=== PATIENT | female | born 1980 | race Hispanic/Latino ===

== ENCOUNTER 2020-09-02 12:07 | Inpatient (IN) | payer OTHER, SELFPAY ==
[2020-09-02 14:52] LABS: Absolute Lymphocytes (CBC) 1.4 K/uL (0.7-4.9); Basophils % 0.2 % (0-1.3); Hematocrit 36.1 % (36.0-45.0); Lymphocytes % 11.3 % (15.3-44.8); MPV 8.3 fL (7.6-11.3); RBC Red Blood Cell Count 4.83 M/uL (3.86-4.86)
[2020-09-02 15:06] LABS: Albumin 3.5 g/dL (3.4-5.0); Bilirubin Direct 0.1 mg/dL (0-0.2); Bilirubin Total 0.4 mg/dL (0.2-1.0); Potassium 3.9 mmol/L (3.5-5.1); Protein, Total 8.7 g/dL (6.4-8.2)
[2020-09-02] MEDS ORDERED: MORPHINE 4 MG/ML SYR ONE (15:06)
[2020-09-02] MEDS ORDERED: ONDANSETRON 4 MG/2 ML VIAL ONE (15:06)
[2020-09-02] MEDS ORDERED: NA CHLORIDE 0.9% 1,000 ML ONE ×2 (15:06→18:45)
--- NOTE | 2020-09-02 15:30 | RAD REPORT ---
EXAM DESCRIPTION: US - Abdomen Exam Limited - 09/02/2020 3:22 pm CLINICAL HISTORY: ABD PAIN COMPARISON: CT ABD PELVIS W CONTRAST dated 03/29/2013 FINDINGS: The gallbladder demonstrates no gallstones. No pericholecystic fluid or gallbladder wall t hickening. The common bile duct is normal measuring 4 mm. The liver demonstrates no findings of intrahepatic biliary dilatation. IMPRESSION: Negative for cholelithiasis or acute cholecystitis.
[2020-09-02 16:02] LABS: Urine Blood Trace-lysed (Negative); Urine Glucose Negative (Negative); Urine Protein 1+ (Negative); Urine Specific Gravity >=1.030 (1.005-1.030); Urine pH 5.5 (5.0-7.0)
--- NOTE | 2020-09-02 16:33 | RAD REPORT ---
EXAM DESCRIPTION: CTAbdomen Pelvis W Contrast - 09/02/2020 4:08 pm CLINICAL HISTORY: Abdominal pain. ABD PAIN COMPARISON: CT ABD PELVIS W CONTRAST dated 03/29/2013 TECHNIQUE: Biphasic CT imaging of the abdomen and pelvis was performed with 100 ml non-ionic IV cont rast. All CT scans are performed using dose optimization technique as appropriate and may include automated exposure control or mA/KV adjustment according to patient size. FINDINGS: The lung bases are clear. Too small to characterize low-density lesions in the liver which are statistically benign. No adrenal lesions. The spleen is unremarkable. Pancreas unremarkable. No renal or ureteral calculi. Small to m oderate volume of free fluid is present. Small bowel obstruction is present. The transition point is in the right hemiabdomen. The transition point is smooth. There is some fecalized small bowel content s. The small bowel measures up to 3 centimeters. Prior appendectomy. No suspicious bony findings. IMPRESSION: Findings consistent with small-bowel obstruction with smooth transition point in the rig ht hemiabdomen, presumably related to adhesions. Ascites is present.
--- NOTE | 2020-09-02 16:45 | ER ---
Nurse's Notes [facility] Name: Priti Ambrose Age: 40 yrs Sex: Female : 1980 Arrival Date: 09/02/2020 Time: 12:09 Bed 17 [facility] MD: Diagnosis: Small Bowel Obstruction Presentation: 09/02 12:17 Chief complaint: Patient states: Upper abd pain that wraps around body for 2 days. N/V ll1 started today. Family member states she saw "liquid dark red" BM last week. Coronavirus screen: Client denies travel out of the [place] in the last 14 days. At this time, the client does not indicate any symptoms associated with coronavirus-19. Ebola Screen: Patient denies travel to an Ebola-affected area in the 21 days before illness onset. Initial Sepsis Screen: Does the patient meet any 2 criteria? No. Patient's initial sepsis screen is negative. Does the patient have a suspected source of infection? Yes: Acute abdominal pain. Risk Assessment: Do you want to hurt yourself or someone else? Patient reports no desire to harm self or others. Onset of symptoms was September 01, 2020. 12:17 Method Of Arrival: Ambulatory ll1 12:17 Acuity: JOSELO 3 ll1 Historical: - Allergies: 12:19 No Known Allergies; ll1 - PMHx: 12:19 None; ll1 - PSHx: 12:19 Appendectomy; ll1 12:20 section; ll1 - Immunization history:: Client reports having NOT received the Covid vaccine. Flu vaccine is not up to date. - Social history:: Smoking status: Patient denies any tobacco usage or history of. Screenin:39 Abuse screen: Denies threats or abuse. Nutritional screening: No deficits noted. jd3 Tuberculosis screening: No symptoms or risk factors identified. Fall Risk Ambulatory Aid- None/Bed Rest/Nurse Assist (0 pts). Gait- Normal/Bed Rest/Wheelchair (0 pts) Mental Status- Oriented to own ability (0 pts). Total Scott Fall Scale indicates No Risk (0-24 pts). Assessment: 14:45 General: Appears in no apparent distress. uncomfortable, Behavior is calm, cooperative, jd3 appropriate for age. Pain: Complains of pain in right upper quadrant and left upper quadrant Quality of pain is described as sharp, shooting, tender. Neuro: Level of Consciousness is awake, alert, obeys commands, Oriented to person, place, time, situation. Cardiovascular: Denies chest pain, Capillary refill < 3 seconds Patient's skin is warm and dry. Respiratory: Airway is patent Respiratory effort is even, unlabored, Respiratory pattern is regular, symmetrical, Denies cough, shortness of breath. GI: Abdomen is round non-distended, Abd is soft X 4 quads Abdomen is tender to palpation in right upper quadrant Reports diarrhea, nausea, vomiting. : No signs and/or symptoms were reported regarding the genitourinary system. EENT: No signs and/or symptoms were reported regarding the EENT system. Derm: Skin is intact, Skin is dry, Skin is normal, Skin temperature is warm. Musculoskeletal: Circulation, motion, and sensation intact. Range of motion: intact in all extremities. 15:23 Reassessment: Patient appears in no apparent distress at this time. No changes from jd3 previously documented assessment. Patient and/or family updated on plan of care and expected duration. Pain level reassessed. Patient is alert, oriented x 3, equal unlabored respirations, skin warm/dry/pink. 16:15 Reassessment: Patient appears in no apparent distress at this time. Patient and/or jd3 family updated on plan of care and expected duration. Pain level reassessed. Patient is alert, oriented x 3, equal unlabored respirations, skin warm/dry/pink. pt reports feeling better after morphine. awaiting results. 17:00 Reassessment: Patient appears in no apparent distress at this time. Patient and/or jd3 family updated on plan of care and expected duration. Pain level reassessed. Patient is alert, oriented x 3, equal unlabored respirations, skin warm/dry/pink. provider at bedside discussing plan of care. 18:15 Reassessment: Patient appears in no apparent distress at this time. Patient and/or jd3 family updated on plan of care and expected duration. Pain level reassessed. Patient is alert, oriented x 3, equal unlabored respirations, skin warm/dry/pink. Patient states feeling better. 20:46 Reassessment: Patient and/or family updated on plan of care and expected duration. Pain ea level reassessed. Patient is alert, oriented x 3, equal unlabored respirations, skin warm/dry/pink. 21:17 Reassessment: Patient and/or family updated on plan of care and expected duration. Pain ea level reassessed. Patient is alert, oriented x 3, equal unlabored respirations, skin warm/dry/pink. Report given to receiving nurse, pt admitted to ED hold 9 per wheelchair per staff. Vital Signs: 12:17 BP 154 / 87; Pulse 77; Resp 16; Temp 97.6; Pulse Ox 99% ; Height 5 ft. 4 in. (162.56 ll1 cm); Pain 10/10; 16:16 Pulse 75; Resp 17 S; Pulse Ox 97% on R/A; jd3 18:59 BP 133 / 74; Pulse 61; Resp 16 S; Pulse Ox 100% on R/A; jd3 20:46 BP 115 / 83; Pulse 60; Resp 18; Pulse Ox 98% ; ea ED Course: 12:09 Patient arrived in ED. ds1 12:19 Triage completed. ll1 12:20 Arm band placed on. ll1 14:28 Nidia Boogie FNP-C [facility]. kb 14:28 Deyvi Chiadez MD is Attending Physician. kb 14:29 Kingsley Bates RN is Primary Nurse. jd3 14:45 Inserted saline lock: 20 gauge in left antecubital area, using aseptic technique. Blood jd3 collected. 15:22 US Abdomen Limited In Process Unspecified. EDMS 15:40 Patient has correct armband on for positive identification. Bed in low position. Call jd3 light in reach. Side rails up X 1. Adult w/ patient. Pulse ox on. NIBP on. 16:08 CT Abd/Pelvis - IV Contrast Only In Process Unspecified. EDMS 16:44 Atif Burns is Hospitalizing Provider. kb 20:45 No provider procedures requiring assistance completed. Patient admitted, IV remains in ea place. Administered Medications: 14:52 Drug: morphine 4 mg Route: IVP; Site: left antecubital; jd3 15:50 Follow up: Response: No adverse reaction jd3 14:52 Drug: Zofran (Ondansetron) 4 mg Route: IVP; Site: left antecubital; jd3 15:50 Follow up: Response: No adverse reaction jd3 14:52 Drug: NS 0.9% 1000 ml Route: IV; Rate: 1000 ml; Site: left antecubital; jd3 15:50 Follow up: Response: No adverse reaction; IV Status: Completed infusion jd3 18:38 Drug: Flagyl (metroNIDAZOLE) 500 mg Volume: 100 ml; Route: IVPB; Rate: 200 ml/hr; jd3 Infused Over: 30 mins; Site: left antecubital; 19:11 Follow up: Response: No adverse reaction; IV Status: Completed infusion jd3 18:38 Drug: NS 0.9% 1000 ml Route: IV; Rate: 125 ml/hr; Site: left antecubital; jd3 21:18 Follow up: IV Status: Completed infusion ea 19:11 Drug: Cipro (ciprofloxacin) 400 mg Volume: 200 ml; Route: IVPB; Infused Over: 60 mins; jd3 Site: left antecubital; 21:18 Follow up: IV Status: Completed infusion ea Outcome: 16:44 Decision to Hospitalize by Provider. kb 20:45 Condition: stable ea 20:45 Instructed on the need for admit, Demonstrated understanding of instructions. 20:45 Admitted to accompanied by nurse, Report called to Receiving nurse ea 21:18 Patient left the ED. ea Signatures: Dispatcher [employer] EDMS Nidia Boogie, SIZE WORKER-C SIZE WORKER-Nellie Gonzalez ds1 Vlaarie Caldera RN Kingsley Salguero ea, RN RN jd3 Lewis, Lynsay, RN RN ll1
--- NOTE | 2020-09-02 16:46 | EDPHYS ---
Physician Documentation [facility] Name: Priti Ambrose Age: 40 yrs Sex: Female : 1980 Arrival Date: 09/02/2020 Time: 12:09 Bed 17 Private MD: ED Physician Deyvi Chaidez HPI: 09/02 18:54 This 40 yrs old Female presents to ER via Ambulatory with complaints of kb Abdominal Pain, Nausea/Vomiting. 18:54 The patient presents with abdominal pain in the upper abdomen. Onset: The kb symptoms/episode began/occurred 2 day(s) ago. The symptoms do not radiate. Associated signs and symptoms: Pertinent positives: nausea, vomiting, and diarrhea, Pertinent negatives: fever. The symptoms are described as constant. Modifying factors: The symptoms are alleviated by nothing, the symptoms are aggravated by pressure. Severity of pain: At its worst the pain was moderate in the emergency department the pain is unchanged. The patient has not experienced similar symptoms in the past. The patient has not recently seen a physician. Historical: - Allergies: 12:19 No Known Allergies; ll1 - PMHx: 12:19 None; ll1 - PSHx: 12:19 Appendectomy; ll1 12:20 section; ll1 - Immunization history:: Client reports having NOT received the Covid vaccine. Flu vaccine is not up to date. - Social history:: Smoking status: Patient denies any tobacco usage or history of. ROS: 18:53 Constitutional: Negative for fever, chills, and weight loss. kb 18:53 Abdomen/GI: Positive for abdominal pain, nausea, vomiting, and diarrhea, Negative for constipation. 18:53 All other systems are negative. Exam: 18:53 Constitutional: This is a well developed, well nourished patient who is awake, alert, kb and in no acute distress. Head/Face: Normocephalic, atraumatic. ENT: Moist Mucous membranes Cardiovascular: Regular rate and rhythm with a normal S1 and S2. No gallops, murmurs, or rubs. No pulse deficits. Respiratory: Respirations even and unlabored. No increased work of breathing, no retractions or nasal flaring. Skin: Warm, dry with normal turgor. Normal color. MS/ Extremity: Pulses equal, no cyanosis. Neurovascular intact. Full, normal range of motion. Neuro: Awake and alert, GCS 15, oriented to person, place, time, and situation. Moves all extremities. Normal gait. Psych: Awake, alert, with orientation to person, place and time. Behavior, mood, and affect are within normal limits. 18:53 Abdomen/GI: Inspection: abdomen appears normal, Bowel sounds: normal, Palpation: soft, in all quadrants, moderate abdominal tenderness, in the epigastric area and right upper quadrant. Vital Signs: 12:17 BP 154 / 87; Pulse 77; Resp 16; Temp 97.6; Pulse Ox 99% ; Height 5 ft. 4 in. (162.56 ll1 cm); Pain 10/10; 16:16 Pulse 75; Resp 17 S; Pulse Ox 97% on R/A; jd3 18:59 BP 133 / 74; Pulse 61; Resp 16 S; Pulse Ox 100% on R/A; jd3 20:46 BP 115 / 83; Pulse 60; Resp 18; Pulse Ox 98% ; ea MDM: 14:28 Patient medically screened. kb 16:41 Data reviewed: vital signs, nurses notes. Data interpreted: Pulse oximetry: on room air kb is 97 %. Interpretation: normal. Counseling: I had a detailed discussion with the patient and/or guardian regarding: the historical points, exam findings, and any diagnostic results supporting the discharge/admit diagnosis, lab results, radiology results, the need for further work-up and treatment in the hospital. Physician consultation: Vinicio Guillen MD was contacted at 16:43, regarding consult, patient's condition, and will see patient in inpatient room. Admission orders: after a detailed discussion of the patient's condition and case, the admit orders are written by me. 09/02 14:28 Order name: Basic Metabolic Panel; Complete Time: 15:08 kb 09/02 14:28 Order name: CBC with Diff; Complete Time: 15:10 kb 09/02 14:28 Order name: Hepatic Function; Complete Time: 15:08 kb 09/02 14:28 Order name: Lipase; Complete Time: 15:08 kb 09/02 16:02 Order name: Urine Dipstick-Ancillary; Complete Time: 16:07 EDMS 09/02 16:04 Order name: Urine --Ancillary (enter results) eb 09/02 14:33 Order name: US Abdomen Limited; Complete Time: 15:39 kb 09/02 15:42 Order name: CT Abd/Pelvis - IV Contrast Only; Complete Time: 16:35 kb 09/02 16:05 Order name: Urine --Ancillary; Complete Time: 18:27 EDMS 09/02 17:51 Order name: COVID-19 : Document "Date of Symptom Onset" if Symptomatic. eb 09/02 20:10 Order name: SARS-COV-2 RT PCR; Complete Time: 20:31 EDMS 09/02 14:28 Order name: IV Saline Lock; Complete Time: 14:43 kb 09/02 14:28 Order name: Labs collected and sent; Complete Time: 14:42 kb 09/02 15:42 Order name: Urine Dipstick-Ancillary (obtain specimen); Complete Time: 16:17 kb 09/02 15:42 Order name: Urine Test (obtain specimen); Complete Time: 16:17 kb Administered Medications: 14:52 Drug: morphine 4 mg Route: IVP; Site: left antecubital; jd3 15:50 Follow up: Response: No adverse reaction jd3 14:52 Drug: Zofran (Ondansetron) 4 mg Route: IVP; Site: left antecubital; jd3 15:50 Follow up: Response: No adverse reaction jd3 14:52 Drug: NS 0.9% 1000 ml Route: IV; Rate: 1000 ml; Site: left antecubital; jd3 15:50 Follow up: Response: No adverse reaction; IV Status: Completed infusion jd3 18:38 Drug: Flagyl (metroNIDAZOLE) 500 mg Volume: 100 ml; Route: IVPB; Rate: 200 ml/hr; jd3 Infused Over: 30 mins; Site: left antecubital; 19:11 Follow up: Response: No adverse reaction; IV Status: Completed infusion jd3 18:38 Drug: NS 0.9% 1000 ml Route: IV; Rate: 125 ml/hr; Site: left antecubital; jd3 21:18 Follow up: IV Status: Completed infusion ea 19:11 Drug: Cipro (ciprofloxacin) 400 mg Volume: 200 ml; Route: IVPB; Infused Over: 60 mins; jd3 Site: left antecubital; 21:18 Follow up: IV Status: Completed infusion ea Disposition: 09/03 07:02 Co-signature as Attending Physician, Deyvi Chaidez MD I agree with the assessment and rn plan of care. Attestation: The patient's history, exam findings, diagnostics, and a summary of any interventions or procedures was reviewed in detail with Nidia TRONCOSO. Disposition Summary: 09/02/20 16:44 Hospitalization Ordered Hospitalization Status: Inpatient Admission kb Provider: Atif Burns Condition: Stable kb Problem: new kb Symptoms: are unchanged kb Bed/Room Type: Standard kb Location: Intensive Care Unit(09/02/20 20:16) bb Room Assignment: ER - 9(09/02/20 20:16) bb Diagnosis - Small Bowel Obstruction kb Forms: - Medication Reconciliation Form kb - SBAR form kb Signatures: Dispatcher [employer] EDNidia Cole FNP-C FNP-Ckb Ballard, Brenda RN RN Deyvi Eldridge MD MD rn Davies, Jonathon, RN RN Gilbert Oliveira RN RN ll1 Valarie Caldera RN, ea Corrections: (The following items were deleted from the chart) 09/02 20:16 16:44 [facility]urg (Inpatient) [facility] 20:16 16:44 kb
--- NOTE | 2020-09-02 17:50 | P.HP ---
Certification for Inpatient Patient admitted to: Observation With expected LOS: >2 Midnights Practitioner: I am a practitioner with admitting privileges, knowledge of patient current condition, hospital course, and medical plan of care. Services: Services provided to patient in accordance with Admission requirements found in Title 42 Section 412.3 of the Code of Federal Regulations Patient History Date of Service: 09/02/20 Reason for admission: Abdominal pain History of Present Illness: 40-year-old woman with a history appendectomy and section x3 presented emergency department with colicky abdominal pain of onset this morning. Associated nausea and vomiting. Patient reports a small bowel movement. Symptoms persisted and therefore presented to the emergency department. CT abdomen and pelvis demonstrates small-bowel obstruction with transition point. General surgery Dr. Guillen informed who recommended hospitalization. Allergies No Known Allergies Allergy (Unverified 03/30/13 02:25) Home Medications: Ciprofloxacin HCl [Cipro*] 500 mg PO Q12H #10 tab 03/31/13 Hydrocodone 7.5/APAP 325 [[place] 7.5/325 mg*] 1 tab PO Q4HP PRN #20 tab 03/31/13 metroNIDAZOLE [Flagyl*] 500 mg PO Q8H #15 tablet 03/31/13 - Past Medical/Surgical History -: 3 c-sections -: Appendectomy - Family History Father -: Diabetes - Social History Smoking Status: Never smoker Alcohol use: No CD- Drugs: No Caffeine use: Yes Review of Systems Other: Except as documented, all other systems reviewed and negative. Physical Examination - Physical Exam General: Alert, In no apparent distress, Oriented x3 HEENT: Atraumatic, Normocephalic, Mucous membr. moist/pink, EOMI, Sclerae nonicteric Neck: Supple, JVD not distended Respiratory: Clear to auscultation bilaterally, Normal air movement Cardiovascular: No edema, Regular rate/rhythm, Normal S1 S2 Gastrointestinal: Normal bowel sounds, Soft and benign, Non-distended, Tenderness (Diffuse moderate tenderness on deep palpation.) Musculoskeletal: No swelling, No tenderness Integumentary: No rashes, No erythema Neurological: Normal speech, Normal strength at 5/5 x4 extr, Cranial nerves 3-12 intact Lymphatics: No axilla or inguinal lymphadenopathy - Studies Laboratory Data (last 24 hrs) 09/02/20 14:40: WBC 12.50 H, Hgb 11.4 L, Hct 36.1, Plt Count 411 H 09/02/20 14:40: Sodium 137, Potassium 3.9, BUN 13, Creatinine 0.86, Glucose 147 H, Total Bilirubin 0.4, AST 11 L, ALT 22, Alkaline Phosphatase 104, Lipase 31 L Assessment and Plan - Problems (Diagnosis) (1) Small bowel obstruction Current Visit: Yes Status: Acute (2) Microcytic anemia Current Visit: Yes Status: Acute - Plan Admit to the medical floor. SBO probably secondary to adhesions. Supportive measures with IV fluid. Insert NG tube to suction if vomiting recur. Consult general surgery Serial abdominal examination Pain management as needed - Advance Directives Does patient have a Living Will: No Does patient have a Durable POA for Healthcare: No
[2020-09-02] MEDS ORDERED: METRONIDAZOLE 500mg IVPB 500 MG/100 ML BAG IV ONE (18:45)
[2020-09-02] MEDS ORDERED: CIPROFLOXACIN 400mg IV 400 MG/200 ML BAG IV ONE (18:45)
[2020-09-02] MEDS ORDERED: METHYLPREDNISOLONE 125 MG INJ ONE (18:54)
[2020-09-02] MEDS: PIPER/TAZO/NS 3.375gm 3.375 GM/100 ML BAG IVPB SCH (21:13)
[2020-09-02] MEDS: D5 0.9 NS 1,000 ML IV SCH (21:26)
[2020-09-02] MEDS ORDERED: PIPERACIL/TAZO 3.375 GM VIAL IV ONE (21:47)
[2020-09-02] MEDS ORDERED: D5 0.9 NS 1,000 ML IV ONE (21:47)
[2020-09-02] MEDS ORDERED: NA CHLORIDE 0.9% 100 ML ONE (21:48)
[2020-09-02 22:19] VITALS: BMI 42.9
[2020-09-02] MEDS: MORPHINE 2 MG/ML SYR IV PRN (22:26)
[2020-09-02] MEDS ORDERED: MORPHINE 2 MG/ML SYR ONE (22:48)
[2020-09-03 02:32] LABS: Urine Appearance CLEAR (Clear); Urine Bilirubin NEGATIVE (Negative); Urine Blood NEGATIVE (Negative); Urine Color YELLOW (Yellow); Urine Glucose NEGATIVE (Negative); Urine Protein NEGATIVE (Negative); Urine Specific Gravity >=1.030 (1.005-1.030)
[2020-09-03 02:33] LABS: Urine Microscopic Reflex NO UMIC
[2020-09-03] MEDS: ONDANSETRON 4 MG/2 ML VIAL IV PRN ×2 (03:24→18:43)
[2020-09-03] MEDS ORDERED: ONDANSETRON 4 MG/2 ML VIAL ONE ×2 (03:41→19:05)
[2020-09-03] MEDS ORDERED: NA CHLORIDE 0.9% 100 ML ONE (04:18)
[2020-09-03] MEDS ORDERED: PIPERACIL/TAZO 3.375 GM VIAL IV ONE (04:19)
[2020-09-03] MEDS: PIPER/TAZO/NS 3.375gm 3.375 GM/100 ML BAG IVPB SCH ×6 (05:13→23:16)
[2020-09-03 06:23] LABS: Absolute Lymphocytes (CBC) 1.4 K/uL (0.7-4.9); Basophils % 0.2 % (0-1.3); Hematocrit 28.9 % (36.0-45.0); MPV 8.1 fL (7.6-11.3); RBC Red Blood Cell Count 3.81 M/uL (3.86-4.86)
[2020-09-03 06:38] LABS: ALT/SGPT 16 U/L (12-78); AST/SGOT 7 U/L (15-37); Albumin 2.8 g/dL (3.4-5.0); Alkaline Phosphatase 78 U/L (45-117); BUN Blood Urea Nitrogen 9 mg/dL (7-18); Bicarbonate 25 mmol/L (21-32); Bilirubin Total 0.4 mg/dL (0.2-1.0); Glucose Level 131 mg/dL (74-106); Magnesium 2.2 mg/dL (1.8-2.4); Potassium 3.7 mmol/L (3.5-5.1); Protein, Total 6.9 g/dL (6.4-8.2); Sodium Level 141 mmol/L (136-145)
[2020-09-03] MEDS: D5 0.9 NS 1,000 ML IV SCH ×2 (08:24→16:41)
[2020-09-03] MEDS ORDERED: D5 0.9 NS 1,000 ML IV ONE ×2 (08:46→16:53)
[2020-09-03 09:21] VITALS: O2SAT 100
[2020-09-03] MEDS ORDERED: ENOXAPARIN 60 MG/0.6 ML SQ ONE (10:58)
--- NOTE | 2020-09-03 12:36 | CON ---
Date of Consultation: 09/03/2020 Brief History Of Present Illness: The patient is a 40-year-old female with a history of saurav endectomy and 3 C-sections, presented to the emergency department with approximately 3-day history of colicky abdominal pain, intermittent with a crescendo-decrescendo type character, associated with so me nausea, vomiting, and diarrhea. She has been reporting bowel movements, predominantly of diarrhea type every single day. She continues to pass gas, but has decreased gas passage since being admitte d to the hospital and as such, she came to the emergency room with the above-stated complaints. Past Medical History: Negative. Past Surgical History: x3, appendectomy. Home Medications: She denied taking any home medications. Allergies: NO KNOWN DRUG ALLERGIES. Family History: Her father had diabetes. Social History: She denies smoking, alcohol, recreational drug use. Review of Systems: 10-point review of systems other than HPI, denies. Physical Examination: Vital Signs: At the time of examination, her BMI is 43. Her blood pressure 114/78, SpO2 is 100% on room air, pulse 76, respiratory rate 16, temperature 97.8. General: She is awake, alert, and oriented. Psychiatric: She is appropriate, conversive. HEENT: She is normocephalic. Sclerae icteric. Mucous membranes are moist. Oropharynx clear. Neck: Supple without JVD. Chest: Normal expansion and excursion. Cardiovascular: Regular rate and rhythm. Pulmonary: Clear to auscultation bilaterally. Abdomen: Soft, morbidly obese, mild global tenderness to palpation. No rebound. No guarding. No f ocal peritonitis. Well-healed surgical scars are evident. She has a large appendectomy scar in the right lower quadrant. Extremities: No clubbing, cyanosis, or edema. Skin: Warm and dry. Laboratory Data: White blood cell count 11.6, hemoglobin 9.3, hematocrit 28.9, platelet count was 30 8. Her neutrophils are 73%. Her sodium 141, potassium 3.7, chloride 112, carbon dioxide is 25, BUN 9, creatinine 0.7, glucose is 131, total bilirubin 0.4. Her urine test was negative on adm ission. She had imaging performed, which included an abdominal ultrasound on 09/02/2020, officially read as negative for cholelithiasis or acute cholecystitis. She had a CT abdomen and pelvis CT on same day, which officially read as findings consistent with small-bowel obstruction with smooth tra nsition point at the right sigifredo-abdomen, presumably related to adhesions. Ascites is present. Speci fically, small-bowel obstruction is present, transition point right sigifredo-abdomen, transition point sm ooth. There is some fecalization of small bowel contents. The small bowel measures up to 3 cm, prio r appendectomy noted. Assessment And Plan: This is a 40-year-old female who comes in with signs and symptoms of a partial small-bowel obstruction versus small-bowel obstruction, likely due to adhesions from previous abdomin al surgeries. 1.IV fluid hydration. 2.N.p.o. status. 3.Serial abdominal exams. 4.Continue medical management. 5.Explained risks, benefits, and alternatives of the above stated plan. The patient agrees to proce ed as indicated. FAIZA/ABEL Voice ID: [id number] Report ID: [id number]
[2020-09-03] MEDS ORDERED: PIPER/TAZO/NS 3.375gm 3.375 GM/100 ML BAG IVPB SCH (14:00)
--- NOTE | 2020-09-03 16:24 | P.PN ---
Subjective Date of Service: 09/03/20 Chief Complaint: Abdominal pain Patient reports intermittent abdominal pain. She stated she vomited this morning. No vomiting overnight. Physical Examination - Vital Signs Temperature: 98.1 F Blood Pressure: 113/79 Pulse: 73 Respirations: 15 Pulse Ox (%): 100 - Physical Exam General: In no apparent distress, Oriented x3 HEENT: Mucous membr. moist/pink Neck: JVD not distended Respiratory: Clear to auscultation bilaterally, Normal air movement Cardiovascular: No edema, Regular rate/rhythm, Normal S1 S2 Gastrointestinal: Normal bowel sounds, Soft and benign, Non-distended, Tenderness (Moderate tenderness on deep palpation) Musculoskeletal: No swelling, No tenderness Integumentary: No rashes, No erythema Neurological: Normal strength at 5/5 x4 extr Assessment And Plan - Current Problems (Diagnosis) (1) Small bowel obstruction Current Visit: Yes Status: Acute (2) Microcytic anemia Current Visit: Yes Status: Acute - Plan General surgery-Dr. Guillen input appreciated. Conservative management SBO probably secondary to adhesions. Supportive measures with IV fluid. Patient started on ice chips Serial abdominal examination Pain management as needed. Monitor and optimize electrolytes.
[2020-09-03] MEDS: MORPHINE 2 MG/ML SYR IV PRN (18:43)
[2020-09-03] MEDS ORDERED: MORPHINE 2 MG/ML SYR ONE (19:04)
[2020-09-03] MEDS ORDERED: KCL 20 MEQ/100 mL IVPB 20 MEQ/100 ML BAG IV ONE (19:42)
[2020-09-03] MEDS ORDERED: KCL 20 MEQ/100 mL IVPB 20 MEQ/100 ML BAG IV SCH (21:00)
[2020-09-04] MEDS: D5 0.9 NS 1,000 ML IV SCH (03:13)
[2020-09-04 05:11] LABS: Absolute Lymphocytes (CBC) 2.1 K/uL (0.7-4.9); Basophils % 0.7 % (0-1.3); Hematocrit 25.4 % (36.0-45.0); Lymphocytes % 33.2 % (15.3-44.8); MPV 7.8 fL (7.6-11.3); RBC Red Blood Cell Count 3.33 M/uL (3.86-4.86)
[2020-09-04 05:18] LABS: BUN Blood Urea Nitrogen 7 mg/dL (7-18); Bicarbonate 27 mmol/L (21-32); Glucose Level 96 mg/dL (74-106); Potassium 3.6 mmol/L (3.5-5.1); Sodium Level 141 mmol/L (136-145)
[2020-09-04] MEDS: PIPER/TAZO/NS 3.375gm 3.375 GM/100 ML BAG IVPB SCH ×2 (05:51→12:34)
[2020-09-04] MEDS: ONDANSETRON 4 MG/2 ML VIAL IV PRN (06:07)
[2020-09-04] MEDS: MORPHINE 2 MG/ML SYR IV PRN (06:07)
[2020-09-04] MEDS ORDERED: MORPHINE 2 MG/ML SYR ONE (06:28)
[2020-09-04] MEDS ORDERED: ONDANSETRON 4 MG/2 ML VIAL ONE (06:29)
[2020-09-04] MEDS ORDERED: KCL 20 MEQ/100 mL IVPB 20 MEQ/100 ML BAG IV ONE (06:39)
[2020-09-04 06:41] LABS: Blood Morphology Comment NOT SEEN (NOT SEEN); Platelet Estimate ADEQ
[2020-09-04] MEDS ORDERED: KCL 20 MEQ/100 mL IVPB 20 MEQ/100 ML BAG IV SCH (07:00)
--- NOTE | 2020-09-04 09:19 | RAD REPORT ---
EXAM DESCRIPTION: RAD - Abdomen 1 View (KUB) - 09/04/2020 9:12 am CLINICAL HISTORY: f/u SBO COMPARISON: No comparisons FINDINGS: Nonobstructive bowel gas pattern. No acute osseous abnormality.Visualized lungs are unrema rkable.No abnormal calcifications. IMPRESSION: Nonobstructive bowel gas pattern.
--- NOTE | 2020-09-04 09:30 | P.PN ---
Subjective Date of Service: 09/04/20 Chief Complaint: Abdominal pain Subjective: Improving (patient passing gas, no nausea, emesis, states pain is stable in LLQ.) Physical Examination - Vital Signs Temperature: 98.3 F Blood Pressure: 123/85 Pulse: 78 Respirations: 15 Pulse Ox (%): 100 - Physical Exam General: Alert, In no apparent distress, Cooperative Respiratory: Clear to auscultation bilaterally, Normal air movement Cardiovascular: Regular rate/rhythm Gastrointestinal: Soft and benign, No tenderness, No masses, No rebound, No guarding Assessment And Plan - Current Problems (Diagnosis) (1) Small bowel obstruction Current Visit: Yes Status: Acute Plan: - advance diet to soft, if patient tolerates may DC home from surgical standpoint - KUB improved - serial exams - continue medical management - incentive spirometry - ambulate with assist
[2020-09-04 12:37] VITALS: BP 118/78; TEMP 97.8
--- NOTE | 2020-09-04 12:43 | P.DS ---
Admission Date: 09/02/20 Discharge Date: 09/04/20 Disposition: ROUTINE DISCHARGE Discharge Condition: FAIR Reason for Admission: Abdominal pain - Problems (1) Small bowel obstruction Current Visit: Yes Status: Acute (2) Microcytic anemia Current Visit: Yes Status: Acute Brief History of Present Illness: 40-year-old woman with a history appendectomy and section x3 presented emergency department with colicky abdominal pain of onset this morning. Associated nausea and vomiting. Patient reports a small bowel movement. Symptoms persisted and therefore presented to the emergency department. CT abdomen and pelvis demonstrates small-bowel obstruction with transition point. General surgery Dr. Guillen informed who recommended hospitalization. Hospital Course: Patient admitted to the medical floor and treated with supportive measures including IV fluid. She did not require NG-tube insertion. Patient was seen in consultation by Dr. Guillen-general surgery who recommended conservative management. Patient placed on empiric antibiotics. Her symptoms spontaneously improved. Patient tolerated diet advancement to soft diet. Also had flatus. Patient deemed stable for discharge per Dr. Guillen. She requested for antfungal for vaginal candidiasis. Patient prescribed oral Diflucan. Vital Signs/Physical Exam: Temp Pulse Resp BP Pulse Ox 97.8 F 72 18 118/78 100 09/04/20 12:00 09/04/20 12:00 09/04/20 12:00 09/04/20 12:00 09/04/20 12:00 General: Alert, In no apparent distress, Oriented x3 HEENT: Mucous membr. moist/pink Neck: Supple, JVD not distended Respiratory: Clear to auscultation bilaterally, Normal air movement Cardiovascular: Regular rate/rhythm, Normal S1 S2 Gastrointestinal: Soft and benign, Non-distended, No tenderness Musculoskeletal: No swelling, No tenderness Integumentary: No rashes Neurological: Normal strength at 5/5 x4 extr Laboratory Data at Discharge: WBC 6.30 K/uL (4.3-10.9) D 09/04/20 04:52 Hgb 8.1 g/dL (12.0-15.0) L 09/04/20 04:52 Hct 25.4 % (36.0-45.0) L 09/04/20 04:52 Plt Count 290 K/uL (152-406) 09/04/20 04:52 Sodium 141 mmol/L (136-145) 09/04/20 04:52 Potassium 3.6 mmol/L (3.5-5.1) 09/04/20 04:52 BUN 7 mg/dL (7-18) 09/04/20 04:52 Creatinine 0.63 mg/dL (0.55-1.3) 09/04/20 04:52 Glucose 96 mg/dL (74-106) 09/04/20 04:52 Phosphorus 3.0 mg/dL (2.5-4.9) 09/03/20 05:25 Magnesium 2.2 mg/dL (1.8-2.4) 09/03/20 05:25 Total Bilirubin 0.4 mg/dL (0.2-1.0) 09/03/20 05:25 AST 7 U/L (15-37) L 09/03/20 05:25 ALT 16 U/L (12-78) 09/03/20 05:25 Alkaline Phosphatase 78 U/L (45-117) 09/03/20 05:25 Lipase 31 U/L (73-393) L 09/02/20 14:40 Home Medications: Fluconazole [Diflucan] 150 mg PO DAILY #3 tablet 09/04/20 New Medications: Fluconazole [Diflucan] 150 mg PO DAILY #3 tablet Diet: Regular Activity: Ad raya Followup: NONE,NONE [Primary Care Provider] - Time spent managing pt's care (in minutes): 36
== END 2020-09-04 13:50 | disposition home or self-care (01) | DRG 390 ==
LOC: ER 12:07 → ERHOLD 17:41
PROVIDERS: ADMIT Internal Medicine; ATTEND Internal Medicine
DX: K56.609 Unspecified intestinal obstruction, unspecified as to partial versus complete obstruction (principal); B37.3 Candidiasis of vulva and vagina; D50.9 Iron deficiency anemia, unspecified; Z90.49 Acquired absence of other specified parts of digestive tract; Z79.899 Other long term (current) drug therapy; Z20.822 Contact with and (suspected) exposure to COVID-19
CPT/HCPCS: 36415; 74018; 74177; 76705; 80048; 80053; 80076; 81003; 81025; 83690; 83735; 84100; 85025; 96361; 96365; 96366; 96367; 96375; 99285; J0744; J1650; J2270; J2405; J2543; J2930; J3480; J7030; J7042; Q9967; U0003